=== PATIENT | female | born 1965 | race Caucasian/White ===

== ENCOUNTER 2018-11-28 11:29 | Inpatient (IN) | payer MEDICAID ==
[2018-11-28 12:12] LABS: ADD MAN DIFF? NO
[2018-11-28 12:17] LABS: BASOPHIL # 0.1 10^3/ul (0.0-0.1); BASOPHILS % 0.4 % (0.0-2.0); EOSINOPHILS % 0.2 % (0.0-7.0); HEMOGLOBIN 11.8 g/dl (12.0-16.0); LYMPHOCYTES % 17.2 % (15.0-51.0); MEAN CORPUSCULAR HEMOGLOBIN 28.8 pg (29.0-33.0); MEAN CORPUSCULAR HGB CONC 33.7 g/dl (32.0-37.0); MEAN CORPUSCULAR VOLUME 85.4 fl (82.0-101.0); MEAN PLATELET VOLUME 9.8 fl (7.4-10.4); MONOCYTE # 1.2 10^3/ul (0.3-0.9); MONOCYTES % 6.7 % (0.0-11.0); NEUTROPHIL # 12.8 10^3/ul (1.6-7.5); NEUTROPHILS % 74.8 % (39.0-77.0); PLATELET COUNT 380 10^3/UL (140-415); RED CELL DISTRIBUTION WIDTH 12.2 % (11.5-14.5)
[2018-11-28 12:17] LABS: WHITE BLOOD COUNT 17.1 10^3/ul (4.8-10.8)
[2018-11-28 12:33] LABS: ALANINE AMINOTRANSFERASE 38 IU/L (13-69); ALBUMIN/GLOBULIN RATIO 0.72; ALKALINE PHOSPHATASE 282 IU/L (42-121); ANION GAP 10 (5-13); ASPARTATE AMINO TRANSFERASE 29 IU/L (15-46); BILIRUBIN,INDIRECT 0.6 mg/dl (0-1.1); BILIRUBIN,TOTAL 0.6 mg/dl (0.2-1.3); BLOOD UREA NITROGEN 19 mg/dl (7-20); CALCIUM 9.9 mg/dl (8.4-10.2); CARBON DIOXIDE 34 mmol/L (21-31); CHLORIDE 92 mmol/L (97-110); CREATININE 0.73 mg/dl (0.44-1.00); Estimated GFR > 60 mL/min (>60); GLUCOSE 264 mg/dl (70-220); POTASSIUM 3.7 mmol/L (3.5-5.1); SODIUM 136 mmol/L (135-144); TOTAL PROTEIN 9.5 g/dl (6.1-8.1)
[2018-11-28] MEDS: VANCOMYCIN 1 GM (PMX) 250 ML IVPB (12:33)
[2018-11-28] MEDS: KETOROLAC 15 MG INJ IV (12:33)
[2018-11-28] MEDS: PIPER-TAZO 3.375 GM IV (PMX) 100 ML IVPB ×2 (12:33→21:52)
[2018-11-28] MEDS: ACETAMINOPHEN 325 MG TAB PO (12:33)
[2018-11-28] MEDS: SODIUM CHLORIDE 0.9% 1L BAG IV* (12:34)
[2018-11-28 12:37] LABS: INR 1.04; PROTIME 13.7 Sec (11.9-14.9); PT RATIO 1.1
[2018-11-28] MEDS ORDERED: ONDANSETRON 4 MG INJ IV (13:00)
[2018-11-28] MEDS ORDERED: ACETAMINOPHEN 325 MG TAB PO (13:00)
[2018-11-28 13:05] LABS: C-REACTIVE PROTEIN 33.8 mg/dl (0.0-0.9)
[2018-11-28 13:30] LABS: ERYTHROCYTE SEDIMENTATION RATE 132 mm/Hr (0-30)
[2018-11-28] MEDS ORDERED: MAGNESIUM HYDROXIDE 30ML CUP PO (16:30)
[2018-11-28] MEDS ORDERED: VANCOMYCIN IV PER PHARMACY XX (16:30)
[2018-11-28] MEDS ORDERED: GLUCAGON 1 MG INJ IM (16:30)
[2018-11-28] MEDS ORDERED: NACL 0.9% 3 ML SYG IV (16:30)
[2018-11-28] MEDS ORDERED: GLUCOSE GEL 15 GRAM TUBE PO ×2 (16:30)
[2018-11-28] MEDS ORDERED: GLUCOSE GEL 15 GRAM TUBE BUCCAL (16:30)
[2018-11-28] MEDS ORDERED: DEXTROSE 50% 50 ML SYRINGE IV ×2 (16:30)
[2018-11-28 16:44] LABS: HEMOGLOBIN A1C 12.1 % (0-5.9)
[2018-11-28] MEDS: INSULIN ASPART [NOVOLOG] 3 ML PEN SC ×2 (18:15→20:24)
[2018-11-28] MEDS: INSULIN GLARGINE [LANTus] (100 UNITS/ML) SYG SC (20:24)
[2018-11-28] MEDS: HEPARIN 5,000 UNIT/1 ML VIAL SC (20:25)
[2018-11-28] MEDS: VANCOMYCIN 750 MG (PMX) 250 ML IVPB (23:57)
[2018-11-29] MEDS ORDERED: ACCU-CHEK XX ×2 (02:00)
[2018-11-29] MEDS: INSULIN ASPART [NOVOLOG] 3 ML PEN SC ×6 (02:31→20:36)
[2018-11-29] MEDS: PANTOPRAZOLE 40 MG INJ IV (05:55)
[2018-11-29] MEDS: PIPER-TAZO 3.375 GM IV (PMX) 100 ML IVPB ×4 (05:58→21:33)
[2018-11-29 06:05] LABS: ADD MAN DIFF? NO
[2018-11-29] MEDS: ONDANSETRON 4 MG INJ IV ×2 (06:07→20:44)
[2018-11-29 06:22] LABS: BASOPHIL # 0.1 10^3/ul (0.0-0.1); BASOPHILS % 0.3 % (0.0-2.0); EOSINOPHILS # 0.1 10^3/ul (0.0-0.5); EOSINOPHILS % 0.4 % (0.0-7.0); HEMATOCRIT 28.1 % (37.0-47.0); HEMOGLOBIN 9.4 g/dl (12.0-16.0); LYMPHOCYTES # 2.5 10^3/ul (0.8-2.9); LYMPHOCYTES % 15.6 % (15.0-51.0); MEAN CORPUSCULAR HEMOGLOBIN 28.8 pg (29.0-33.0); MEAN CORPUSCULAR HGB CONC 33.5 g/dl (32.0-37.0); MEAN CORPUSCULAR VOLUME 86.2 fl (82.0-101.0); MEAN PLATELET VOLUME 10.4 fl (7.4-10.4); MONOCYTE # 1.3 10^3/ul (0.3-0.9); MONOCYTES % 8.3 % (0.0-11.0); NEUTROPHILS % 74.8 % (39.0-77.0); PLATELET COUNT 328 10^3/UL (140-415); RED BLOOD COUNT 3.26 10^6/ul (4.20-5.40); RED CELL DISTRIBUTION WIDTH 12.2 % (11.5-14.5)
[2018-11-29 06:50] LABS: ALANINE AMINOTRANSFERASE 63 IU/L (13-69); ALBUMIN 2.6 g/dl (3.3-4.9); ALBUMIN/GLOBULIN RATIO 0.72; ALKALINE PHOSPHATASE 314 IU/L (42-121); ANION GAP 8 (5-13); ASPARTATE AMINO TRANSFERASE 59 IU/L (15-46); BILIRUBIN,INDIRECT 0.4 mg/dl (0-1.1); BILIRUBIN,TOTAL 0.4 mg/dl (0.2-1.3); BLOOD UREA NITROGEN 16 mg/dl (7-20); CALCIUM 8.2 mg/dl (8.4-10.2); CARBON DIOXIDE 29 mmol/L (21-31); CHLORIDE 100 mmol/L (97-110); CHOL/HDL RATIO 4.6 RATIO; CHOLESTEROL 117 mg/dl (100-200); CREATININE 0.65 mg/dl (0.44-1.00); Estimated GFR > 60 mL/min (>60); GLUCOSE 196 mg/dl (70-220); HDL CHOLESTEROL 25 mg/dl (37-92); LDL CHOLESTEROL,CALCULATED 69 mg/dl; MAGNESIUM 1.4 mg/dl (1.7-2.5); PHOSPHORUS 3.2 mg/dl (2.5-4.9); POTASSIUM 3.6 mmol/L (3.5-5.1); SODIUM 137 mmol/L (135-144); TOTAL PROTEIN 6.2 g/dl (6.1-8.1); TRIGLYCERIDES 115 mg/dl (0-149)
[2018-11-29 07:05] LABS: FREE THYROXINE INDEX (Calc) 3.31 ug/ml (0.65-3.89); T4 (THYROXINE) 7.2 ug/dl (5.5-11.0)
[2018-11-29] MEDS ORDERED: POLYMYXIN B 500000 UNIT INJ (07:09)
[2018-11-29 07:18] LABS: THYROID STIMULATING HORMONE 0.865 MIU/L (0.465-4.680)
[2018-11-29 07:21] LABS: C-REACTIVE PROTEIN 25.2 mg/dl (0.0-0.9)
[2018-11-29] MEDS ORDERED: HYDROmorphONE 1 MG/5 ML IV SYRINGE IV ×3 (07:30)
[2018-11-29] MEDS ORDERED: ONDANSETRON 4 MG INJ IV (07:30)
[2018-11-29] MEDS ORDERED: MEPERIDINE 25 MG INJ IV (07:30)
[2018-11-29] MEDS ORDERED: LABETALOL HCL 20MG INJ IV (07:30)
[2018-11-29] MEDS ORDERED: PROCHLORPERAZINE 10 MG INJ IV (07:30)
[2018-11-29] MEDS ORDERED: hydrALAzine 20 MG INJ IV (07:30)
[2018-11-29] MEDS ORDERED: DIPHENHYDRAMINE 50 MG INJ IV (07:30)
[2018-11-29] MEDS ORDERED: FENTAnyl 50 MCG/ML VIAL IV (07:30)
[2018-11-29] MEDS ORDERED: LIDOCAINE 2% (SDV) 5 ML INJ (07:45)
[2018-11-29] MEDS ORDERED: PROPOFOL 20 ML (07:45)
[2018-11-29] MEDS ORDERED: MIDAZOLAM 1 MG/ML 2 ML INJ (07:45)
[2018-11-29] MEDS ORDERED: FENTAnyl 50 MCG/ML VIAL (07:51)
[2018-11-29] MEDS: BUPIVACAINE 0.5% (SDV) 30 ML INJ (08:12)
[2018-11-29] MEDS: LIDOCAINE 1% (MPF) 30 ML INJ (08:13)
[2018-11-29] MEDS: POLYMYXIN/BACITRACIN 1L IRRIG IRR (08:13)
[2018-11-29] MEDS ORDERED: EPHEDrine 25 MG/5 ML SYG (08:23)
[2018-11-29] MEDS: HEPARIN 5,000 UNIT/1 ML VIAL SC ×2 (09:00→20:37)
[2018-11-29] MEDS: VANCOMYCIN 750 MG (PMX) 250 ML IVPB (12:54)
[2018-11-29] MEDS: HYDROCODONE/APAP (5/325) TAB PO (17:18)
[2018-11-29] MEDS: INSULIN GLARGINE [LANTus] (100 UNITS/ML) SYG SC (20:36)
[2018-11-29] MEDS: ACETAMINOPHEN 325 MG TAB PO (21:33)
[2018-11-30] MEDS: VANCOMYCIN 750 MG (PMX) 250 ML IVPB (00:07)
[2018-11-30 00:28] LABS: VANCOMYCIN,TROUGH 5.6 ug/ml (10.0-20.0)
[2018-11-30] MEDS: PIPER-TAZO 3.375 GM IV (PMX) 100 ML IVPB ×3 (05:10→21:15)
[2018-11-30] MEDS: PANTOPRAZOLE 40 MG INJ IV (05:10)
[2018-11-30] MEDS: HEPARIN 5,000 UNIT/1 ML VIAL SC ×2 (08:39→20:47)
[2018-11-30] MEDS: INSULIN ASPART [NOVOLOG] 3 ML PEN SC ×4 (08:40→20:49)
[2018-11-30 12:13] LABS: ADD MAN DIFF? NO
[2018-11-30 12:19] LABS: WHITE BLOOD COUNT 16.5 10^3/ul (4.8-10.8)
[2018-11-30 12:19] LABS: BASOPHIL # 0.1 10^3/ul (0.0-0.1); BASOPHILS % 0.4 % (0.0-2.0); EOSINOPHILS # 0.1 10^3/ul (0.0-0.5); EOSINOPHILS % 0.5 % (0.0-7.0); HEMATOCRIT 28.7 % (37.0-47.0); HEMOGLOBIN 9.5 g/dl (12.0-16.0); LYMPHOCYTES # 2.7 10^3/ul (0.8-2.9); LYMPHOCYTES % 16.6 % (15.0-51.0); MEAN CORPUSCULAR HEMOGLOBIN 28.7 pg (29.0-33.0); MEAN CORPUSCULAR HGB CONC 33.1 g/dl (32.0-37.0); MEAN CORPUSCULAR VOLUME 86.7 fl (82.0-101.0); MONOCYTE # 1.1 10^3/ul (0.3-0.9); MONOCYTES % 6.5 % (0.0-11.0); NEUTROPHIL # 12.5 10^3/ul (1.6-7.5); NEUTROPHILS % 75.4 % (39.0-77.0); PLATELET COUNT 360 10^3/UL (140-415); RED BLOOD COUNT 3.31 10^6/ul (4.20-5.40); RED CELL DISTRIBUTION WIDTH 12.4 % (11.5-14.5)
[2018-11-30] MEDS: DAKINS 0.0125%(1/40) 473 ML SOLUTION TP (12:21)
[2018-11-30] MEDS: VANCOMYCIN 1.25 GM/NS 250 ML 250 ML IVPB (12:22)
[2018-11-30 13:08] LABS: PROCALCITONIN 0.23 ng/mL (0.00-0.10)
[2018-11-30 13:12] LABS: C-REACTIVE PROTEIN 31.2 mg/dl (0.0-0.9)
[2018-11-30 13:16] LABS: ERYTHROCYTE SEDIMENTATION RATE > 130 mm/Hr (0-30)
[2018-11-30] MEDS: ONDANSETRON 4 MG INJ IV (20:46)
[2018-11-30] MEDS: ACETAMINOPHEN 325 MG TAB PO (20:46)
[2018-11-30] MEDS: INSULIN GLARGINE [LANTus] (100 UNITS/ML) SYG SC (20:50)
[2018-12-01] MEDS: VANCOMYCIN 1.25 GM/NS 250 ML 250 ML IVPB ×2 (00:51→11:48)
[2018-12-01] MEDS: PANTOPRAZOLE (EC) 40 MG TAB PO (05:36)
[2018-12-01] MEDS: PIPER-TAZO 3.375 GM IV (PMX) 100 ML IVPB ×2 (05:36→13:34)
[2018-12-01 05:39] LABS: ADD MAN DIFF? NO
[2018-12-01 05:44] LABS: BASOPHIL # 0.1 10^3/ul (0.0-0.1); BASOPHILS % 0.3 % (0.0-2.0); EOSINOPHILS # 0.1 10^3/ul (0.0-0.5); EOSINOPHILS % 0.6 % (0.0-7.0); HEMATOCRIT 26.5 % (37.0-47.0); HEMOGLOBIN 8.7 g/dl (12.0-16.0); LYMPHOCYTES # 2.4 10^3/ul (0.8-2.9); LYMPHOCYTES % 14.7 % (15.0-51.0); MEAN CORPUSCULAR HEMOGLOBIN 28.7 pg (29.0-33.0); MEAN CORPUSCULAR HGB CONC 32.8 g/dl (32.0-37.0); MEAN CORPUSCULAR VOLUME 87.5 fl (82.0-101.0); MEAN PLATELET VOLUME 10.1 fl (7.4-10.4); MONOCYTE # 1.2 10^3/ul (0.3-0.9); MONOCYTES % 7.3 % (0.0-11.0); NEUTROPHIL # 12.4 10^3/ul (1.6-7.5); NEUTROPHILS % 76.5 % (39.0-77.0); PLATELET COUNT 374 10^3/UL (140-415); RED BLOOD COUNT 3.03 10^6/ul (4.20-5.40); RED CELL DISTRIBUTION WIDTH 12.5 % (11.5-14.5)
[2018-12-01 05:44] LABS: WHITE BLOOD COUNT 16.2 10^3/ul (4.8-10.8)
[2018-12-01] MEDS: ONDANSETRON 4 MG INJ IV ×2 (05:45→23:44)
[2018-12-01 06:07] LABS: PHOSPHORUS 4.3 mg/dl (2.5-4.9)
[2018-12-01 06:07] LABS: MAGNESIUM 1.5 mg/dl (1.7-2.5)
[2018-12-01 06:09] LABS: ANION GAP 7 (5-13); BLOOD UREA NITROGEN 16 mg/dl (7-20); CALCIUM 8.3 mg/dl (8.4-10.2); CARBON DIOXIDE 32 mmol/L (21-31); CHLORIDE 99 mmol/L (97-110); CREATININE 1.46 mg/dl (0.44-1.00); Estimated GFR 38 mL/min (>60); GLUCOSE 205 mg/dl (70-220); POTASSIUM 3.3 mmol/L (3.5-5.1); SODIUM 138 mmol/L (135-144)
[2018-12-01] MEDS: HEPARIN 5,000 UNIT/1 ML VIAL SC ×2 (08:35→20:08)
[2018-12-01] MEDS: DAKINS 0.0125%(1/40) 473 ML SOLUTION TP (08:36)
[2018-12-01] MEDS: INSULIN ASPART [NOVOLOG] 3 ML PEN SC ×5 (08:36→20:07)
[2018-12-01] MEDS: LISINOPRIL 5 MG TAB PO (08:36)
[2018-12-01 10:29] LABS: ADD UMIC NO; UR ASCORBIC ACID NEGATIVE (NEGATIVE); UR BILIRUBIN (Dip) NEGATIVE (NEGATIVE); UR BLOOD (Dip) NEGATIVE (NEGATIVE); UR CLARITY CLEAR (CLEAR); UR COLOR STRAW (YELLOW); UR GLUCOSE (Dip) 1+ mg/dL (NEGATIVE); UR KETONES (Dip) NEGATIVE (NEGATIVE); UR LEUKOCYTE ESTERASE (Dip) NEGATIVE Leu/ul (NEGATIVE); UR NITRITE (Dip) NEGATIVE (NEGATIVE); UR SPECIFIC GRAVITY (Dip) 1.005 (1.003-1.030); UR TOTAL PROTEIN (Dip) NEGATIVE (NEGATIVE); UR UROBILINOGEN (Dip) NEGATIVE (NEGATIVE)
[2018-12-01] MEDS: POTASSIUM CHLORIDE (SR) 10 MEQ TAB PO (14:27)
[2018-12-01] MEDS: MEROPENEM 1 GM/50ML(PMX) 50 ML IVPB ×2 (14:28→23:36)
[2018-12-01] MEDS: MAGNESIUM SULFATE 2 GM/50 ML 50 ML IVPB (16:07)
[2018-12-01] MEDS: INSULIN GLARGINE [LANTus] (100 UNITS/ML) SYG SC (20:06)
[2018-12-02] MEDS: VANCOMYCIN 1.25 GM/NS 250 ML 250 ML IVPB (00:39)
[2018-12-02] MEDS: INSULIN ASPART [NOVOLOG] 3 ML PEN SC ×8 (03:05→20:10)
[2018-12-02] MEDS: ACCU-CHEK XX (03:07)
[2018-12-02 05:24] LABS: ADD MAN DIFF? NO
[2018-12-02 05:33] LABS: BASOPHIL # 0.1 10^3/ul (0.0-0.1); BASOPHILS % 0.3 % (0.0-2.0); EOSINOPHILS # 0.1 10^3/ul (0.0-0.5); EOSINOPHILS % 0.7 % (0.0-7.0); HEMOGLOBIN 8.1 g/dl (12.0-16.0); LYMPHOCYTES # 2.6 10^3/ul (0.8-2.9); LYMPHOCYTES % 17.7 % (15.0-51.0); MEAN CORPUSCULAR HEMOGLOBIN 28.5 pg (29.0-33.0); MEAN CORPUSCULAR HGB CONC 32.4 g/dl (32.0-37.0); MONOCYTES % 6.9 % (0.0-11.0); NEUTROPHIL # 10.7 10^3/ul (1.6-7.5); NEUTROPHILS % 73.8 % (39.0-77.0); PLATELET COUNT 396 10^3/UL (140-415); RED BLOOD COUNT 2.84 10^6/ul (4.20-5.40); RED CELL DISTRIBUTION WIDTH 12.7 % (11.5-14.5)
[2018-12-02 05:33] LABS: WHITE BLOOD COUNT 14.5 10^3/ul (4.8-10.8)
[2018-12-02] MEDS: PANTOPRAZOLE (EC) 40 MG TAB PO (05:43)
[2018-12-02 06:32] LABS: MAGNESIUM 2.2 mg/dl (1.7-2.5)
[2018-12-02 06:32] LABS: PHOSPHORUS 4.1 mg/dl (2.5-4.9)
[2018-12-02 06:52] LABS: ANION GAP 6 (5-13); BLOOD UREA NITROGEN 16 mg/dl (7-20); CARBON DIOXIDE 29 mmol/L (21-31); CHLORIDE 102 mmol/L (97-110); CREATININE 1.78 mg/dl (0.44-1.00); Estimated GFR 30 mL/min (>60); GLUCOSE 214 mg/dl (70-220); POTASSIUM 3.3 mmol/L (3.5-5.1); SODIUM 137 mmol/L (135-144)
[2018-12-02] MEDS: DAKINS 0.0125%(1/40) 473 ML SOLUTION TP (09:00)
[2018-12-02] MEDS: LISINOPRIL 5 MG TAB PO (09:00)
[2018-12-02] MEDS: CHOLECALCIFEROL 2,000 UNIT CAP PO (09:00)
[2018-12-02] MEDS: HEPARIN 5,000 UNIT/1 ML VIAL SC ×2 (09:00→20:09)
[2018-12-02] MEDS: MEROPENEM 1 GM/50ML(PMX) 50 ML IVPB (09:18)
[2018-12-02] MEDS: CLINDAMYCIN 900 MG (PMX) 50 ML IVPB ×2 (14:46→22:02)
[2018-12-02] MEDS ORDERED: POLYMYXIN/BACITRACIN 1L IRRIG (15:53)
[2018-12-02] MEDS ORDERED: MIDAZOLAM 1 MG/ML 2 ML INJ (16:01)
[2018-12-02] MEDS ORDERED: FENTAnyl 50 MCG/ML VIAL (16:01)
[2018-12-02] MEDS ORDERED: PROPOFOL 20 ML (16:01)
[2018-12-02] MEDS: VANCOMYCIN 1 GM INJ IRR (16:23)
[2018-12-02] MEDS: LIDOCAINE 1% (MPF) 30 ML INJ (16:23)
[2018-12-02] MEDS: POLYMYXIN/BACITRACIN 1L IRRIG (16:23)
[2018-12-02] MEDS ORDERED: VANCOMYCIN 1 GM INJ (17:03)
[2018-12-02] MEDS: ONDANSETRON 4 MG INJ IV (17:45)
[2018-12-02] MEDS: hydrALAzine 20 MG INJ IV (17:58)
[2018-12-02] MEDS ORDERED: DIPHENHYDRAMINE 50 MG INJ IV (18:00)
[2018-12-02] MEDS ORDERED: MEPERIDINE 25 MG INJ IV (18:00)
[2018-12-02] MEDS ORDERED: LABETALOL HCL 20MG INJ IV (18:00)
[2018-12-02] MEDS ORDERED: METOCLOPRAMIDE 10 MG INJ IV (18:00)
[2018-12-02] MEDS ORDERED: MIDAZOLAM 1 MG/ML 2 ML INJ IV (18:00)
[2018-12-02] MEDS ORDERED: EPHEDrine 25 MG/5 ML SYG IV (18:00)
[2018-12-02] MEDS ORDERED: FENTAnyl 50 MCG/ML VIAL IV ×3 (18:00)
[2018-12-02] MEDS: INSULIN GLARGINE [LANTus] (100 UNITS/ML) SYG SC (20:09)
[2018-12-02] MEDS: CIPROFLOXACIN 400MG/D5W 200 ML IVPB (20:11)
[2018-12-02 22:22] LABS: LACTIC ACID 1.2 mmol/L (0.5-2.0)
[2018-12-03] MEDS: INSULIN ASPART [NOVOLOG] 3 ML PEN SC ×8 (02:30→20:10)
[2018-12-03] MEDS: ACCU-CHEK XX (05:12)
[2018-12-03] MEDS: PANTOPRAZOLE (EC) 40 MG TAB PO (05:14)
[2018-12-03] MEDS: CLINDAMYCIN 900 MG (PMX) 50 ML IVPB ×3 (05:14→22:21)
[2018-12-03 05:41] LABS: ADD MAN DIFF? NO
[2018-12-03 05:43] LABS: WHITE BLOOD COUNT 13.8 10^3/ul (4.8-10.8)
[2018-12-03 05:43] LABS: BASOPHILS % 0.2 % (0.0-2.0); EOSINOPHILS % 0.1 % (0.0-7.0); HEMATOCRIT 26.4 % (37.0-47.0); HEMOGLOBIN 8.5 g/dl (12.0-16.0); LYMPHOCYTES # 2.1 10^3/ul (0.8-2.9); LYMPHOCYTES % 15.5 % (15.0-51.0); MEAN CORPUSCULAR HEMOGLOBIN 28.2 pg (29.0-33.0); MEAN CORPUSCULAR HGB CONC 32.2 g/dl (32.0-37.0); MEAN CORPUSCULAR VOLUME 87.7 fl (82.0-101.0); MEAN PLATELET VOLUME 9.7 fl (7.4-10.4); MONOCYTE # 1.1 10^3/ul (0.3-0.9); MONOCYTES % 7.8 % (0.0-11.0); NEUTROPHIL # 10.5 10^3/ul (1.6-7.5); NEUTROPHILS % 75.8 % (39.0-77.0); PLATELET COUNT 466 10^3/UL (140-415); RED BLOOD COUNT 3.01 10^6/ul (4.20-5.40)
[2018-12-03 05:58] LABS: PHOSPHORUS 4.3 mg/dl (2.5-4.9)
[2018-12-03 06:04] LABS: ANION GAP 8 (5-13); BLOOD UREA NITROGEN 16 mg/dl (7-20); CALCIUM 8.4 mg/dl (8.4-10.2); CARBON DIOXIDE 30 mmol/L (21-31); CHLORIDE 101 mmol/L (97-110); CREATININE 2.12 mg/dl (0.44-1.00); Estimated GFR 25 mL/min (>60); GLUCOSE 173 mg/dl (70-220); POTASSIUM 3.3 mmol/L (3.5-5.1); SODIUM 139 mmol/L (135-144)
[2018-12-03] MEDS: ONDANSETRON 4 MG INJ IV ×2 (07:49→10:51)
[2018-12-03] MEDS: CIPROFLOXACIN 400MG/D5W 200 ML IVPB ×2 (09:35→20:08)
[2018-12-03] MEDS: CHOLECALCIFEROL 2,000 UNIT CAP PO (09:36)
[2018-12-03] MEDS: DAKINS 0.0125%(1/40) 473 ML SOLUTION TP (09:36)
[2018-12-03] MEDS: LISINOPRIL 5 MG TAB PO (09:36)
[2018-12-03] MEDS: HEPARIN 5,000 UNIT/1 ML VIAL SC ×2 (09:37→20:10)
[2018-12-03] MEDS: SOD CHLORIDE 0.9% 1,000 ML IV (17:26)
[2018-12-03] MEDS: INSULIN GLARGINE [LANTus] (100 UNITS/ML) SYG SC (20:09)
[2018-12-04] MEDS: SOD CHLORIDE 0.9% 1,000 ML IV (00:53)
[2018-12-04] MEDS: ONDANSETRON 4 MG INJ IV ×2 (01:59→08:13)
[2018-12-04 05:35] LABS: ADD MAN DIFF? NO
[2018-12-04 05:41] LABS: BASOPHILS % 0.4 % (0.0-2.0); EOSINOPHILS # 0.1 10^3/ul (0.0-0.5); EOSINOPHILS % 0.9 % (0.0-7.0); HEMATOCRIT 25.1 % (37.0-47.0); HEMOGLOBIN 7.9 g/dl (12.0-16.0); LYMPHOCYTES # 2.7 10^3/ul (0.8-2.9); LYMPHOCYTES % 24.2 % (15.0-51.0); MEAN CORPUSCULAR HEMOGLOBIN 27.8 pg (29.0-33.0); MEAN CORPUSCULAR HGB CONC 31.5 g/dl (32.0-37.0); MEAN CORPUSCULAR VOLUME 88.4 fl (82.0-101.0); MEAN PLATELET VOLUME 9.6 fl (7.4-10.4); MONOCYTE # 0.9 10^3/ul (0.3-0.9); MONOCYTES % 7.8 % (0.0-11.0); NEUTROPHIL # 7.3 10^3/ul (1.6-7.5); NEUTROPHILS % 66.1 % (39.0-77.0); PLATELET COUNT 434 10^3/UL (140-415); RED BLOOD COUNT 2.84 10^6/ul (4.20-5.40); RED CELL DISTRIBUTION WIDTH 12.7 % (11.5-14.5)
[2018-12-04 05:41] LABS: WHITE BLOOD COUNT 11.1 10^3/ul (4.8-10.8)
[2018-12-04 06:04] LABS: ANION GAP 6 (5-13); BLOOD UREA NITROGEN 17 mg/dl (7-20); CALCIUM 8.1 mg/dl (8.4-10.2); CARBON DIOXIDE 29 mmol/L (21-31); CHLORIDE 103 mmol/L (97-110); CREATININE 2.02 mg/dl (0.44-1.00); Estimated GFR 26 mL/min (>60); GLUCOSE 162 mg/dl (70-220); POTASSIUM 3.3 mmol/L (3.5-5.1); SODIUM 138 mmol/L (135-144)
[2018-12-04 06:08] LABS: MAGNESIUM 1.9 mg/dl (1.7-2.5)
[2018-12-04 06:08] LABS: PHOSPHORUS 4.5 mg/dl (2.5-4.9)
[2018-12-04] MEDS: PANTOPRAZOLE (EC) 40 MG TAB PO (06:09)
[2018-12-04] MEDS: CLINDAMYCIN 900 MG (PMX) 50 ML IVPB ×3 (06:10→23:18)
[2018-12-04] MEDS: INSULIN ASPART [NOVOLOG] 3 ML PEN SC ×9 (08:09→21:00)
[2018-12-04] MEDS: AMLODIPINE 2.5 MG TAB PO (08:17)
[2018-12-04] MEDS: CHOLECALCIFEROL 2,000 UNIT CAP PO (08:17)
[2018-12-04] MEDS: CIPROFLOXACIN 400MG/D5W 200 ML IVPB ×2 (08:18→21:06)
[2018-12-04] MEDS: DAKINS 0.0125%(1/40) 473 ML SOLUTION TP (08:19)
[2018-12-04] MEDS: HEPARIN 5,000 UNIT/1 ML VIAL SC ×2 (08:22→21:14)
[2018-12-04] MEDS: METOCLOPRAMIDE 10 MG INJ IV ×2 (11:05→17:48)
[2018-12-04] MEDS: POTASSIUM CHLORIDE (SR) 10 MEQ TAB PO (12:27)
[2018-12-04] MEDS: INSULIN GLARGINE [LANTus] (100 UNITS/ML) SYG SC (21:05)
[2018-12-05] MEDS: METOCLOPRAMIDE 10 MG INJ IV ×5 (01:03→23:55)
[2018-12-05 05:32] LABS: ADD MAN DIFF? NO
[2018-12-05 05:39] LABS: WHITE BLOOD COUNT 9.9 10^3/ul (4.8-10.8)
[2018-12-05 05:39] LABS: BASOPHILS % 0.4 % (0.0-2.0); EOSINOPHILS # 0.1 10^3/ul (0.0-0.5); HEMATOCRIT 27.5 % (37.0-47.0); HEMOGLOBIN 8.7 g/dl (12.0-16.0); LYMPHOCYTES # 2.1 10^3/ul (0.8-2.9); LYMPHOCYTES % 20.7 % (15.0-51.0); MEAN CORPUSCULAR HGB CONC 31.6 g/dl (32.0-37.0); MEAN CORPUSCULAR VOLUME 88.4 fl (82.0-101.0); MEAN PLATELET VOLUME 9.3 fl (7.4-10.4); MONOCYTE # 0.8 10^3/ul (0.3-0.9); MONOCYTES % 8.4 % (0.0-11.0); NEUTROPHIL # 6.8 10^3/ul (1.6-7.5); NEUTROPHILS % 68.4 % (39.0-77.0); PLATELET COUNT 515 10^3/UL (140-415); RED BLOOD COUNT 3.11 10^6/ul (4.20-5.40)
[2018-12-05 06:12] LABS: ANION GAP 7 (5-13); BLOOD UREA NITROGEN 18 mg/dl (7-20); CALCIUM 8.6 mg/dl (8.4-10.2); CARBON DIOXIDE 30 mmol/L (21-31); CHLORIDE 102 mmol/L (97-110); CREATININE 2.11 mg/dl (0.44-1.00); Estimated GFR 25 mL/min (>60); GLUCOSE 204 mg/dl (70-220); SODIUM 139 mmol/L (135-144)
[2018-12-05 06:15] LABS: MAGNESIUM 1.8 mg/dl (1.7-2.5)
[2018-12-05 06:15] LABS: PHOSPHORUS 4.5 mg/dl (2.5-4.9)
[2018-12-05] MEDS: CLINDAMYCIN 900 MG (PMX) 50 ML IVPB ×3 (06:40→22:26)
[2018-12-05] MEDS: PANTOPRAZOLE (EC) 40 MG TAB PO (06:42)
[2018-12-05] MEDS: CHOLECALCIFEROL 2,000 UNIT CAP PO (08:24)
[2018-12-05] MEDS: AMLODIPINE 2.5 MG TAB PO (08:25)
[2018-12-05] MEDS: CIPROFLOXACIN 400MG/D5W 200 ML IVPB ×2 (08:25→21:12)
[2018-12-05] MEDS: INSULIN ASPART [NOVOLOG] 3 ML PEN SC ×7 (08:32→22:12)
[2018-12-05] MEDS: HEPARIN 5,000 UNIT/1 ML VIAL SC ×2 (08:33→21:16)
[2018-12-05] MEDS: DAKINS 0.0125%(1/40) 473 ML SOLUTION TP (08:33)
[2018-12-05 13:53] LABS: ADD UMIC NO; UR ASCORBIC ACID NEGATIVE (NEGATIVE); UR BILIRUBIN (Dip) NEGATIVE (NEGATIVE); UR BLOOD (Dip) NEGATIVE (NEGATIVE); UR CLARITY CLEAR (CLEAR); UR COLOR COLORLESS (YELLOW); UR GLUCOSE (Dip) 1+ mg/dL (NEGATIVE); UR KETONES (Dip) NEGATIVE (NEGATIVE); UR LEUKOCYTE ESTERASE (Dip) NEGATIVE Leu/ul (NEGATIVE); UR NITRITE (Dip) NEGATIVE (NEGATIVE); UR SPECIFIC GRAVITY (Dip) 1.003 (1.003-1.030); UR TOTAL PROTEIN (Dip) NEGATIVE (NEGATIVE); UR UROBILINOGEN (Dip) NEGATIVE (NEGATIVE)
[2018-12-05 14:06] LABS: CREATININE,URINE RANDOM 13.85 mg/dl (20-320)
[2018-12-05] MEDS: INSULIN GLARGINE [LANTus] (100 UNITS/ML) SYG SC (21:15)
[2018-12-06 06:07] LABS: ADD MAN DIFF? NO
[2018-12-06 06:10] LABS: BASOPHIL # 0.1 10^3/ul (0.0-0.1); BASOPHILS % 0.5 % (0.0-2.0); EOSINOPHILS # 0.2 10^3/ul (0.0-0.5); EOSINOPHILS % 2.1 % (0.0-7.0); HEMATOCRIT 27.4 % (37.0-47.0); HEMOGLOBIN 8.7 g/dl (12.0-16.0); LYMPHOCYTES # 2.3 10^3/ul (0.8-2.9); LYMPHOCYTES % 22.6 % (15.0-51.0); MEAN CORPUSCULAR HEMOGLOBIN 27.7 pg (29.0-33.0); MEAN CORPUSCULAR HGB CONC 31.8 g/dl (32.0-37.0); MEAN CORPUSCULAR VOLUME 87.3 fl (82.0-101.0); MEAN PLATELET VOLUME 9.1 fl (7.4-10.4); MONOCYTE # 0.9 10^3/ul (0.3-0.9); MONOCYTES % 8.4 % (0.0-11.0); NEUTROPHIL # 6.7 10^3/ul (1.6-7.5); NEUTROPHILS % 65.4 % (39.0-77.0); PLATELET COUNT 516 10^3/UL (140-415); RED BLOOD COUNT 3.14 10^6/ul (4.20-5.40); RED CELL DISTRIBUTION WIDTH 13.2 % (11.5-14.5)
[2018-12-06 06:10] LABS: WHITE BLOOD COUNT 10.2 10^3/ul (4.8-10.8)
[2018-12-06] MEDS: PANTOPRAZOLE (EC) 40 MG TAB PO (06:23)
[2018-12-06] MEDS: CLINDAMYCIN 900 MG (PMX) 50 ML IVPB ×3 (06:24→21:58)
[2018-12-06] MEDS: METOCLOPRAMIDE 10 MG INJ IV ×4 (06:31→23:36)
[2018-12-06 06:33] LABS: PHOSPHORUS 4.9 mg/dl (2.5-4.9)
[2018-12-06 06:33] LABS: MAGNESIUM 1.9 mg/dl (1.7-2.5)
[2018-12-06 06:35] LABS: ANION GAP 5 (5-13); BLOOD UREA NITROGEN 21 mg/dl (7-20); CALCIUM 8.7 mg/dl (8.4-10.2); CARBON DIOXIDE 31 mmol/L (21-31); CHLORIDE 102 mmol/L (97-110); CREATININE 2.13 mg/dl (0.44-1.00); Estimated GFR 24 mL/min (>60); GLUCOSE 151 mg/dl (70-220); POTASSIUM 3.9 mmol/L (3.5-5.1); SODIUM 138 mmol/L (135-144)
[2018-12-06] MEDS: CIPROFLOXACIN 400MG/D5W 200 ML IVPB ×2 (08:12→20:11)
[2018-12-06] MEDS: CHOLECALCIFEROL 2,000 UNIT CAP PO (08:15)
[2018-12-06] MEDS: DAKINS 0.0125%(1/40) 473 ML SOLUTION TP (08:16)
[2018-12-06] MEDS: AMLODIPINE 2.5 MG TAB PO (08:16)
[2018-12-06] MEDS: INSULIN ASPART [NOVOLOG] 3 ML PEN SC ×7 (08:25→20:18)
[2018-12-06] MEDS: HEPARIN 5,000 UNIT/1 ML VIAL SC ×2 (08:25→20:13)
[2018-12-06] MEDS: INSULIN GLARGINE [LANTus] (100 UNITS/ML) SYG SC (20:13)
[2018-12-07] MEDS: PANTOPRAZOLE (EC) 40 MG TAB PO (06:14)
[2018-12-07] MEDS: METOCLOPRAMIDE 10 MG INJ IV ×3 (06:14→17:31)
[2018-12-07] MEDS: CLINDAMYCIN 900 MG (PMX) 50 ML IVPB ×3 (06:14→22:08)
[2018-12-07 06:25] LABS: ADD MAN DIFF? NO
[2018-12-07 06:32] LABS: BASOPHIL # 0.1 10^3/ul (0.0-0.1); BASOPHILS % 0.7 % (0.0-2.0); EOSINOPHILS # 0.2 10^3/ul (0.0-0.5); EOSINOPHILS % 2.3 % (0.0-7.0); HEMATOCRIT 28.7 % (37.0-47.0); HEMOGLOBIN 9.2 g/dl (12.0-16.0); LYMPHOCYTES # 2.2 10^3/ul (0.8-2.9); LYMPHOCYTES % 21.3 % (15.0-51.0); MEAN CORPUSCULAR HGB CONC 32.1 g/dl (32.0-37.0); MEAN CORPUSCULAR VOLUME 87.5 fl (82.0-101.0); MEAN PLATELET VOLUME 9.2 fl (7.4-10.4); MONOCYTE # 0.8 10^3/ul (0.3-0.9); MONOCYTES % 7.3 % (0.0-11.0); NEUTROPHIL # 7.1 10^3/ul (1.6-7.5); NEUTROPHILS % 67.4 % (39.0-77.0); PLATELET COUNT 533 10^3/UL (140-415); RED BLOOD COUNT 3.28 10^6/ul (4.20-5.40); RED CELL DISTRIBUTION WIDTH 13.1 % (11.5-14.5)
[2018-12-07 06:32] LABS: WHITE BLOOD COUNT 10.5 10^3/ul (4.8-10.8)
[2018-12-07 06:56] LABS: PHOSPHORUS 4.9 mg/dl (2.5-4.9)
[2018-12-07 06:56] LABS: MAGNESIUM 1.8 mg/dl (1.7-2.5)
[2018-12-07 06:57] LABS: ANION GAP 9 (5-13); BLOOD UREA NITROGEN 29 mg/dl (7-20); CALCIUM 8.9 mg/dl (8.4-10.2); CARBON DIOXIDE 28 mmol/L (21-31); CHLORIDE 103 mmol/L (97-110); CREATININE 2.36 mg/dl (0.44-1.00); Estimated GFR 22 mL/min (>60); GLUCOSE 169 mg/dl (70-220); SODIUM 140 mmol/L (135-144)
[2018-12-07 07:48] LABS: POTASSIUM 4.2 mmol/L (3.5-5.1)
[2018-12-07] MEDS: CHOLECALCIFEROL 2,000 UNIT CAP PO (08:13)
[2018-12-07] MEDS: CIPROFLOXACIN 400MG/D5W 200 ML IVPB ×2 (08:13→20:47)
[2018-12-07] MEDS: AMLODIPINE 2.5 MG TAB PO (08:13)
[2018-12-07] MEDS: HEPARIN 5,000 UNIT/1 ML VIAL SC ×2 (08:14→20:52)
[2018-12-07] MEDS: INSULIN ASPART [NOVOLOG] 3 ML PEN SC ×7 (08:15→20:58)
[2018-12-07] MEDS: DAKINS 0.0125%(1/40) 473 ML SOLUTION TP (08:19)
[2018-12-07] MEDS: morphine 2 MG INJ IV (15:08)
[2018-12-07] MEDS: INSULIN GLARGINE [LANTus] (100 UNITS/ML) SYG SC (20:56)
[2018-12-08] MEDS: METOCLOPRAMIDE 10 MG INJ IV ×4 (00:16→17:16)
[2018-12-08] MEDS: CLINDAMYCIN 900 MG (PMX) 50 ML IVPB ×2 (05:42→14:49)
[2018-12-08] MEDS: PANTOPRAZOLE (EC) 40 MG TAB PO (05:49)
[2018-12-08 05:58] LABS: ADD MAN DIFF? NO
[2018-12-08 06:17] LABS: WHITE BLOOD COUNT 11.1 10^3/ul (4.8-10.8)
[2018-12-08 06:17] LABS: BASOPHIL # 0.1 10^3/ul (0.0-0.1); BASOPHILS % 0.6 % (0.0-2.0); EOSINOPHILS # 0.3 10^3/ul (0.0-0.5); EOSINOPHILS % 2.7 % (0.0-7.0); HEMATOCRIT 28.8 % (37.0-47.0); HEMOGLOBIN 9.2 g/dl (12.0-16.0); LYMPHOCYTES # 2.4 10^3/ul (0.8-2.9); LYMPHOCYTES % 21.6 % (15.0-51.0); MEAN CORPUSCULAR HGB CONC 31.9 g/dl (32.0-37.0); MEAN CORPUSCULAR VOLUME 87.8 fl (82.0-101.0); MEAN PLATELET VOLUME 9.2 fl (7.4-10.4); MONOCYTE # 0.8 10^3/ul (0.3-0.9); MONOCYTES % 7.4 % (0.0-11.0); NEUTROPHIL # 7.4 10^3/ul (1.6-7.5); NEUTROPHILS % 66.6 % (39.0-77.0); PLATELET COUNT 538 10^3/UL (140-415); RED BLOOD COUNT 3.28 10^6/ul (4.20-5.40); RED CELL DISTRIBUTION WIDTH 13.2 % (11.5-14.5)
[2018-12-08 06:47] LABS: ANION GAP 6 (5-13); BLOOD UREA NITROGEN 37 mg/dl (7-20); CALCIUM 8.4 mg/dl (8.4-10.2); CARBON DIOXIDE 29 mmol/L (21-31); CHLORIDE 101 mmol/L (97-110); CREATININE 2.15 mg/dl (0.44-1.00); Estimated GFR 24 mL/min (>60); GLUCOSE 193 mg/dl (70-220); MAGNESIUM 1.7 mg/dl (1.7-2.5); PHOSPHORUS 4.5 mg/dl (2.5-4.9); POTASSIUM 4.1 mmol/L (3.5-5.1); SODIUM 136 mmol/L (135-144)
[2018-12-08] MEDS: CIPROFLOXACIN 400MG/D5W 200 ML IVPB (08:25)
[2018-12-08] MEDS: AMLODIPINE 2.5 MG TAB PO (08:25)
[2018-12-08] MEDS: CHOLECALCIFEROL 2,000 UNIT CAP PO (08:26)
[2018-12-08] MEDS: INSULIN ASPART [NOVOLOG] 3 ML PEN SC ×6 (08:31→17:15)
[2018-12-08] MEDS: HEPARIN 5,000 UNIT/1 ML VIAL SC (08:31)
[2018-12-08] MEDS: DAKINS 0.0125%(1/40) 473 ML SOLUTION TP (12:32)
[2018-12-08 16:06] LABS: CREATININE, RANDOM URINE 13 mg/dL (20-275); MICROALBUMIN 0.6 mg/dL; MICROALBUMIN/CREATININE RATIO 46 (<30)
== END 2018-12-08 21:50 | disposition home health service (06) | DRG 853 ==
LOC: 2NE 12-04 11:35 → MS3 18:39 → E/R 11:29 → MS3 12:46
PROC: 0QBP0ZZ Excision of Left Metatarsal, Open Approach (ICD-10-PCS; principal; 2018-11-29 07:45)
PROC: 0KBW0ZZ Excision of Left Foot Muscle, Open Approach (ICD-10-PCS; 2018-11-29 07:45)
DX: A41.9 Sepsis, unspecified organism (principal); N17.0 Acute kidney failure with tubular necrosis; L03.116 Cellulitis of left lower limb; L02.612 Cutaneous abscess of left foot; I77.5 Necrosis of artery; E11.621 Type 2 diabetes mellitus with foot ulcer; E11.42 Type 2 diabetes mellitus with diabetic polyneuropathy; E11.628 Type 2 diabetes mellitus with other skin complications; M65.872 Other synovitis and tenosynovitis, left ankle and foot; D64.9 Anemia, unspecified; I73.9 Peripheral vascular disease, unspecified; B95.7 Other staphylococcus as the cause of diseases classified elsewhere; E87.6 Hypokalemia
CPT/HCPCS: 36415; 71045; 73630-LT; 73718; 76775; 80048; 80053; 80061; 80202; 81003; 82043; 82306; 82652; 82962; 83036; 83605; 83735; 84100; 84145; 84155; 84300; 84436; 84443; 84479; 84703; 85025; 85610; 85651; 85730; 86140; 87040-91; 87070; 87075; 87081; 87086; 87102; 93005; 93922; 96374; 96375; 97161; 99285-25